=== PATIENT | male | born 1985 | race African-American/Black ===

== ENCOUNTER 2018-09-08 16:48 | Emergency (ER) | payer SELFPAY ==
[~2018-09-08] VITALS: Ht 180.3 cm; Wt 162.8 kg
[2018-09-08] MEDS ORDERED: cloNIDine HCL 0.1 MG TABLET PO ONE ×2 (17:15→19:45)
--- NOTE | 2018-09-08 17:43 | RAD ---
Exam performed: CT scan of the head without contrast. Date of Service: 09/08/2018. Comparison: None available. Clinical History: Headache. Technique: Helical acquisitions are obtained from the foramen magnum to the vertex without intravenous administration of contrast. Findings: The ventricles are midline without evidence of dilatation. Normal augustin-white differentiation is maintained. There is no extra axial fluid collection, intraparenchymal hemorrhage or mass lesion. The visualized portions of the orbits, paranasal sinuses and the mastoid air cells appear clear. The calvarium is intact. Impression: 1. No acute intracranial process detected. PQRS Compliance Statement: One or more of the following individualized dose reduction techniques were utilized for this examination: 1. Automated exposure control 2. Adjustment of the mA and/or kV according to patient size 3. Use of iterative reconstruction technique Electronically signed by: Megha Campbell MD (09/08/2018 5:40 PM) [facility]
[2018-09-08] MEDS ORDERED: PROCHLORPERAZINE 10 MG/2 ML VIAL. IV ONE (17:45)
[2018-09-08] MEDS ORDERED: MORPHINE SULFATE 10 MG/ML VIAL. IV ONE (17:45)
[2018-09-08] MEDS ORDERED: METOCLOPRAMIDE HCL 10 MG/2 ML VIAL. IV ONE (17:45)
[2018-09-08 18:19] LABS: BASO % 1 % (0-3); EOS # 0.3 x10^3/uL (0.0-0.7); EOS % 6 % (0-3); HEMATOCRIT 45.6 % (39.0-53.0); LYMPH # 1.8 x10^3/uL (1.0-4.8); LYMPH % 42 % (24-48); MEAN CORPUSCULAR HEMOGLOBIN 26 pg (25-35); MEAN CORPUSCULAR HGB CONC 33 g/dL (31-37); MEAN CORPUSCULAR VOLUME 78 fL (79-100); MONO # 0.3 x10^3/uL (0.0-1.1); MONO % 7 % (0-9); NEUT # 1.9 x10^3uL (1.8-7.7); NEUT % 45 % (31-73); PLATELET COUNT 280 x10^3/uL (140-400); RED BLOOD COUNT 5.82 x10^6/uL (4.30-5.70); RED CELL DISTRIBUTION WIDTH 14.4 % (11.5-14.5); WHITE BLOOD COUNT 4.3 x10^3/uL (4.0-11.0)
[2018-09-08 18:36] LABS: CALCIUM 9.1 mg/dL (8.5-10.1); CREATININE 1.1 mg/dL (0.7-1.3); GFR 93.9; POTASSIUM 3.9 mmol/L (3.5-5.1)
[2018-09-08 18:42] LABS: ALBUMIN 3.8 g/dL (3.4-5.0); ALBUMIN/GLOBULIN RATIO 0.9 (1.0-1.7); TOTAL BILIRUBIN 0.6 mg/dL (0.2-1.0)
[2018-09-08] MEDS ORDERED: LABETALOL 20 MG/4 ML DISP.SYRIN. IVP ONE (18:45)
--- NOTE | 2018-09-08 18:48 | PHYS DOC ---
Past Medical History Past Medical History: No Pertinent History Past Surgical History: No Surgical History Drug Use: None Adult General Chief Complaint Chief Complaint: HYPERTENSION HPI HPI Patient is a 32 year old -[place] male with history of seasonal allergies who presents to nasal congestion, watery eyes and headache after waki ng from sleep. Headache is described as frontal and facial. Reports light sensitivity denies nausea, vomiting, neck pain and extremity i weakness or loss of sensation.. This headache is not sudden onset is not the worst headache of the patient's life. Does report occasional allergy related headaches. Patient did take Tylenol with limited relief. Of note, patient to check his blood pressure which was elevated at 180s over 120s. He was given clonidine by a family member which he took 3 hours ago. Patient states his symptoms initially improved but then his headache return. Denies history of hypertension. Denies chest pain palpitations shortness of breath. Patient is a nonsmoker, drinks occasional alcohol. Denies drug use. Reports family history of hypertension. No family history of subarachnoid hemorrhage. No other acute symptoms or complaints. Review of Systems Review of Systems ROS as per HPI All other systems were reviewed and found to be within normal limits, except as documented in this note. Current Medications Current Medications Current Medications Medications (Trade) Dose Ordered Sig/Shabana Start Time Stop Time Status Last Admin Dose Admin Clonidine HCl (Catapres) 0.2 mg 1X ONCE 09/08/18 17:15 09/08/18 17:17 DC 09/08/18 17:40 0.2 MG Labetalol HCl (Normodyne Iv Push) 20 mg 1X ONCE 09/08/18 18:45 09/08/18 18:46 DC 09/08/18 18:54 20 MG Metoclopramide HCl (Reglan Vial) 10 mg 1X ONCE 09/08/18 17:45 09/08/18 17:46 DC 09/08/18 18:01 10 MG Morphine Sulfate (Morphine Sulfate) 5 mg 1X ONCE 09/08/18 17:45 09/08/18 17:46 DC 09/08/18 18:00 5 MG Prochlorperazine Edisylate (Compazine) 10 mg 1X ONCE 09/08/18 17:45 09/08/18 17:46 DC 09/08/18 17:57 10 MG Allergies Allergies Allergies Coded Allergies Type Severity Reaction Last Updated Verified No Known Drug Allergies 09/08/18 No Physical Exam Physical Exam Constitutional: Well developed, well nourished, no acute distress, non-toxic appearance. [] HENT: Normocephalic, maxillary facial pain, tenderness, bilateral external ears normal, oropharynx moist, no oral exudates, nose normal. [] Eyes: PERRLA, EOMI, conjunctiva, injected[] Neck: Normal range of motion, no tenderness, supple, no stridor. [] Cardiovascular:Heart rate regular rhythm, no murmur [] Lungs & Thorax: Bilateral breath sounds clear to auscultation. [] Abdomen: Bowel sounds normal, soft, no tenderness. [] Skin: Warm, dry, no erythema, no rash. [] Back: No tenderness. [] Extremities: No tenderness, no cyanosis, no clubbing, ROM intact, no edema. [] Neurologic: Alert and oriented X 3, normal motor function, normal sensory function, no focal deficits noted. [] Psychologic: Affect normal, judgement normal, mood normal. [] Current Patient Data Vital Signs Vital Signs Date Time Temp Pulse Resp B/P (MAP) Pulse Ox O2 Delivery O2 Flow Rate FiO2 09/08/18 19:00 80 16 95 09/08/18 18:59 Room Air 09/08/18 18:54 182/136 09/08/18 17:00 97.7 97.7 Lab Values Laboratory Tests Test 09/08/18 17:55 White Blood Count 4.3 x10^3/uL (4.0-11.0) Red Blood Count 5.82 x10^6/uL (4.30-5.70) H Hemoglobin 15.0 g/dL (13.0-17.5) Hematocrit 45.6 % (39.0-53.0) Mean Corpuscular Volume 78 fL (79-100) L Mean Corpuscular Hemoglobin 26 pg (25-35) Mean Corpuscular Hemoglobin Concent 33 g/dL (31-37) Red Cell Distribution Width 14.4 % (11.5-14.5) Platelet Count 280 x10^3/uL (140-400) Neutrophils (%) (Auto) 45 % (31-73) Lymphocytes (%) (Auto) 42 % (24-48) Monocytes (%) (Auto) 7 % (0-9) Eosinophils (%) (Auto) 6 % (0-3) H Basophils (%) (Auto) 1 % (0-3) Neutrophils # (Auto) 1.9 x10^3uL (1.8-7.7) Lymphocytes # (Auto) 1.8 x10^3/uL (1.0-4.8) Monocytes # (Auto) 0.3 x10^3/uL (0.0-1.1) Eosinophils # (Auto) 0.3 x10^3/uL (0.0-0.7) Basophils # (Auto) 0.0 x10^3/uL (0.0-0.2) Sodium Level 140 mmol/L (136-145) Potassium Level 3.9 mmol/L (3.5-5.1) Chloride Level 103 mmol/L (98-107) Carbon Dioxide Level 27 mmol/L (21-32) Anion Gap 10 (6-14) Blood Urea Nitrogen 9 mg/dL (8-26) Creatinine 1.1 mg/dL (0.7-1.3) Estimated GFR (Cockcroft-Gault) 93.9 BUN/Creatinine Ratio 8 (6-20) Glucose Level 99 mg/dL (70-99) Calcium Level 9.1 mg/dL (8.5-10.1) Total Bilirubin 0.6 mg/dL (0.2-1.0) Aspartate Amino Transferase (AST) 33 U/L (15-37) Alanine Aminotransferase (ALT) 55 U/L (16-63) Alkaline Phosphatase 80 U/L (46-116) Total Protein 8.0 g/dL (6.4-8.2) Albumin 3.8 g/dL (3.4-5.0) Albumin/Globulin Ratio 0.9 (1.0-1.7) L Laboratory Tests 09/08/18 17:55 Laboratory Tests 09/08/18 17:55 EKG EKG [EKG: Sinus rhythm, rate 80, no acute ST-T wave changes, QTC 451] Radiology/Procedures Radiology/Procedures [CT head: NAD] Course & Med Decision Making Course & Med Decision Making Pertinent Labs and Imaging studies reviewed. (See chart for details) [CT had nonacute. No focal neurologic deficits on examination. Headache resolved with treatment. Patient require repeat blood pressure medication the ED for hypertension management of hypertension. Suspect long history of undiagnosed to untreated hypertension and perhaps sleep apnea based upon body habitus. Patient does not have a primary care physician and express's reluctance to follow-up with a primary care provider but is agreeable to do so in the next week. Will initiate blood pressure medication treated for his seasonal allergies and referral to local PCP. Return precautions reviewed. Patient verbalizes understanding agreement discharge instructions prior to departure.] Dragon Disclaimer Dragon Disclaimer This electronic medical record was generated, in whole or in part, using a voice recognition dictation system. Departure Departure Impression: Primary Impression: Headache syndrome Additional Impressions: Seasonal allergies Accelerated hypertension Disposition: HOME, SELF-CARE Condition: GOOD Referrals: NO PCP (PCP) Patient Instructions: General Headache Without Cause, Khov-am-Iaxm Additional Instructions: Please take medications as instructed and follow up with local PCP in 2-3 days to recheck blood pressure. Check blood pressure daily. Return to the symptoms reviewed. Scripts Hydrocodone Bit/Acetaminophen (HYDROCODONE-APAP 5-325 ) 1 Tab Tablet 1 TAB PO PRN Q6HRS PRN for PAIN for 7 Days, #10 TAB 0 Refills Prov: MORTEZA SHETH DO 09/08/18 Labetalol Hcl (LABETALOL HCL) 100 Mg Tablet 1 TAB PO BID, #60 TAB 0 Refills Prov: MORTEZA SHETH DO 09/08/18 Fexofenadine Hcl (EFREM ALLERGY) 180 Mg Tablet 1 TAB PO DAILY, #30 TAB 2 Refills Prov: MORTEZA SHETH DO 09/08/18 Problem Qualifiers MORTEZA SHETH DO Sep 08, 2018 18:48
[2018-09-08] MEDS ORDERED: FEXO180T81 PO (19:53)
[2018-09-08] MEDS ORDERED: LABE100T5 PO (19:53)
[2018-09-08] MEDS ORDERED: HYDR-2761 PO (19:53)
[2018-09-08 21:07] VITALS: BP 170/112
--- NOTE | 2018-09-09 11:22 | EKG ---
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
== END 2018-09-08 21:09 | disposition home or self-care (01) ==
LOC: ER 16:48
DX: G44.89 Other headache syndrome (principal); J30.2 Other seasonal allergic rhinitis; I10 Essential (primary) hypertension
CPT/HCPCS: 36415; 70450; 80053; 85025; 93005; 96374; 96375; 99285; J0780; J2270; J2765; J3490